=== PATIENT | female | born 1965 | race Two or more races ===

== ENCOUNTER 2018-08-01 17:51 | Emergency (ER) | payer OTHER, SELFPAY ==
[~2018-08-01] VITALS: Ht 152.4 cm; Wt 82.4 kg
--- NOTE | 2018-08-01 18:17 | NUR ---
PT PRESENTING TO ER FOR SOB STARTING TODAY, FEVER/CHILLS/FATIGUE STARTING THURSDAY AND LUMP ON UPPER LEFT SIDE CHEST X FEW MONTHS CAUSING PAIN. PT VERY EMOTIONAL UPON ARRIVAL TO ROOM. CONNECTED TO MONITORING, VSS. FAMILY AT BEDSIDE. CALL LIGHT WITHIN REACH. AWAITING MD ASSESSMENT AND ORDERS AT THIS TIME
--- NOTE | 2018-08-01 18:32 | NUR ---
MD TO BEDSIDE FOR ASSESSMENT. AWAITING ORDERS AT THIS TIME
--- NOTE | 2018-08-01 18:46 | NUR ---
ORDERS RECEIVED, LAB AT BEDSIDE FOR COLLECTION. PT TO BE MEDICATED
[2018-08-01] MEDS ORDERED: FAMOTIDINE 20 MG TABLET ONE (18:50)
[2018-08-01] MEDS ORDERED: IBUPROFEN 600 MG TABLET ONE (18:51)
[2018-08-01 18:58] LABS: BASOPHILS # (AUTO) 0.04 x10^3/uL (0-0.1); BASOPHILS % (AUTO) 0 % (0-1); EOSINOPHILS # (AUTO) 0.03 x10^3/uL (0-0.4); EOSINOPHILS % (AUTO) 0 % (1-7); LYMPHOCYTES # (AUTO) 1.89 x10^3/uL (1-3.4); LYMPHOCYTES % (AUTO) 15 % (22-44); MD NO; MEAN CORPUSCULAR HEMOGLOBIN 31.4 pg (27.0-34.8); MEAN CORPUSCULAR HGB CONC 34.7 g/dL (32.4-35.8); MEAN CORPUSCULAR VOLUME 90.4 fL (80-100); MEAN PLATELET VOLUME 9.2 fL (7.4-10.4); MONOCYTES # (AUTO) 0.51 x10^3/uL (0.2-0.8); MONOCYTES % (AUTO) 4 % (2-9); NEUTROPHILS # (AUTO) 9.92 x10^3/uL (1.8-6.8); NEUTROPHILS % (AUTO) 80 % (42-75); PLATELET COUNT 210 x10^3/uL (130-400); RED BLOOD COUNT 4.54 x10^6/uL (3.82-5.3)
[2018-08-01] MEDS ORDERED: IBUPROFEN 600 MG TABLET PO ONE (19:00)
[2018-08-01] MEDS ORDERED: FAMOTIDINE 20 MG TABLET PO ONE (19:00)
[2018-08-01 19:06] VITALS: BP 125/71
--- NOTE | 2018-08-01 19:09 | NUR ---
BACK FROM RAD. PT MEDICATED PER JUN. TECH AT BEDSIDE FOR EKG. FAMILY AT BEDSIDE. CALL LIGHT WITHIN REACH. VSS AT THIS TIME
[2018-08-01 19:11] LABS: ALANINE AMINOTRANSFERASE 36 U/L (12-78); ALBUMIN 3.3 g/dL (3.4-5.0); ANION GAP 7 mmol/L (5-15); CALCIUM 9.2 mg/dL (8.5-10.1); CHLORIDE 111 mmol/L (98-107); CREATININE 1.19 mg/dL (0.55-1.02)
[2018-08-01 19:16] LABS: ALKALINE PHOSPHATASE 113 U/L (45-117); BILIRUBIN,TOTAL 0.1 mg/dL (0.2-1.0); T4 (THYROXINE) 13.6 mcg/dL (4.8-13.9); TROPONIN I < 0.015 ng/mL (0.000-0.045)
--- NOTE | 2018-08-01 19:35 | NUR ---
MD TO BEDSIDE TO RECHECK PT AND UPDATE PT AND FAMILY ON POC. PT TO BE DCd
== END 2018-08-01 19:53 | disposition home or self-care (01) ==
LOC: ED 19:00
DX: M94.0 Chondrocostal junction syndrome [Tietze] (principal); R07.89 Other chest pain
CPT/HCPCS: 36415; 71046; 80053; 84436; 84443; 84484; 85025; 93005; 99284

== ENCOUNTER 2019-11-14 07:44 | Emergency (ER) | payer OTHER ==
[~2019-11-14] VITALS: Ht 154.9 cm; Wt 85.2 kg
[2019-11-14] MEDS ORDERED: DIAZEPAM 5 MG TABLET ONE (08:23)
[2019-11-14] MEDS ORDERED: KETOROLAC 30 MG/1 ML ONE (08:23)
[2019-11-14] MEDS ORDERED: KETOROLAC 30 MG/1 ML IM ONE (08:30)
[2019-11-14] MEDS ORDERED: DIAZEPAM 5 MG TABLET PO ONE (08:30)
--- NOTE | 2019-11-14 08:36 | NUR ---
PT IN XRAY
--- NOTE | 2019-11-14 10:12 | NUR ---
RECHECK OF VITALS SHOWS PTS HR [id number], PA NOTIFIED, LABS AND EKG ORDERED Addendum: 11/14/19 at 1013 by JACOBO PT STATES SHE "GETS DIZZY SOMETIMES". PT STATES PAIN RELIEF CURRENTLY AFTER MEDS.
[2019-11-14 10:46] LABS: BASOPHILS # (AUTO) 0.02 x10^3/uL (0-0.1); BASOPHILS % (AUTO) 0 % (0-1); EOSINOPHILS # (AUTO) 0.09 x10^3/uL (0-0.4); EOSINOPHILS % (AUTO) 1 % (1-7); LYMPHOCYTES % (AUTO) 26 % (22-44); MD NO; MEAN CORPUSCULAR HGB CONC 33.2 g/dL (32.4-35.8); MEAN CORPUSCULAR VOLUME 93.4 fL (80-100); MONOCYTES # (AUTO) 0.47 x10^3/uL (0.2-0.8); MONOCYTES % (AUTO) 5 % (2-9); NEUTROPHILS # (AUTO) 6.82 x10^3/uL (1.8-6.8); NEUTROPHILS % (AUTO) 68 % (42-75); PLATELET COUNT 196 x10^3/uL (130-400); RED CELL DISTRIBUTION WIDTH 12.1 % (9.6-15.2)
[2019-11-14 10:51] LABS: ALBUMIN 3.6 g/dL (3.4-5.0); ANION GAP 7 mmol/L (5-15); CALCIUM 9.5 mg/dL (8.5-10.1); CHLORIDE 112 mmol/L (98-107); CREATININE 0.89 mg/dL (0.55-1.02)
[2019-11-14 11:23] VITALS: BP 143/72
== END 2019-11-14 09:33 ==
LOC: ED 08:06
DX: M13.162 Monoarthritis, not elsewhere classified, left knee (principal); M54.42 Lumbago with sciatica, left side; R00.1 Bradycardia, unspecified
CPT/HCPCS: 36415; 72110; 73564; 80048; 82040; 85025; 93005; 96372; 99285; J1885

== ENCOUNTER 2020-08-02 19:33 | Observation (INO) | payer OTHER ==
[~2020-08-02] VITALS: Ht 152.4 cm; Wt 99.3 kg
--- NOTE | 2020-08-02 19:54 | NUR ---
CC OF LEFT HIP, KNEE, AND ANKLE PAIN. PTS DAUGHTER AT BEDSIDE, TRANSLATING PER REQUEST OF PT. PT HAS HAD LEFT HIP PAIN FOR 2 MONTHS, BUT WORSENED TODAY. PT DESCRIBES PAIN SHARP AND CRAMPING PAIN 10/10. PT RESTING IN GURNEY CRYING DUE TO PAIN.
[2020-08-02] MEDS ORDERED: KETAMINE 10 MG/ML, 20ML IV ONE (20:38)
[2020-08-02] MEDS ORDERED: KETAMINE 10 MG/ML, 20ML ONE (20:51)
[2020-08-02] MEDS ORDERED: KETOROLAC 30 MG/1 ML IVPush ONE (21:30)
[2020-08-02] MEDS ORDERED: KETOROLAC 30 MG/1 ML ONE (21:44)
[2020-08-02 22:13] VITALS: BP 150/82
[2020-08-02] MEDS ORDERED: LIDODERM 5% PATCH TD PRN (23:30)
[2020-08-02] MEDS ORDERED: ACETAMINOPHEN 325 MG TABLET PO PRN (23:30)
[2020-08-02] MEDS ORDERED: KETOROLAC 30 MG/1 ML IV PRN (23:30)
[2020-08-02] MEDS ORDERED: GABAPENTIN 300 MG CAPSULE PO PRN (23:30)
[2020-08-02] MEDS ORDERED: MELATONIN 5 MG TABLET PO PRN (23:30)
[2020-08-02] MEDS ORDERED: DOCUSATE 100 MG CAPSULE PO PRN (23:30)
[2020-08-03 00:31] VITALS: BP 125/80
[2020-08-03 07:02] VITALS: BP 129/77
[2020-08-03] MEDS ORDERED: ACETAMINOPHEN 500 MG TABLET PO PRN (09:00)
[2020-08-03] MEDS: GABAPENTIN 100 MG CAPSULE PO SCH ×3 (11:30→20:20)
[2020-08-03 14:30] VITALS: BP 124/85
[2020-08-03] MEDS ORDERED: GADOTERATE 10 MMOL/20ML SYR ONE (16:25)
[2020-08-03 18:54] VITALS: BP 123/71
[2020-08-04 01:29] VITALS: BP 109/61
[2020-08-04] MEDS: GABAPENTIN 100 MG CAPSULE PO SCH ×2 (05:34→11:06)
[2020-08-04 06:08] LABS: ALANINE AMINOTRANSFERASE 46 U/L (12-78); ALBUMIN 3.3 g/dL (3.4-5.0); ANION GAP 7 mmol/L (5-15); BASOPHILS % (AUTO) 0 % (0-1); CALCIUM 9.1 mg/dL (8.5-10.1); CHLORIDE 110 mmol/L (98-107); CREATININE 0.89 mg/dL (0.55-1.02); EOSINOPHILS % (AUTO) 3 % (1-7); LYMPHOCYTES % (AUTO) 30 % (22-44); MEAN CORPUSCULAR HEMOGLOBIN 31.8 pg (27.0-34.8); MEAN CORPUSCULAR HGB CONC 34.8 g/dL (32.4-35.8); MEAN PLATELET VOLUME 9.7 fL (7.4-10.4); MONOCYTES % (AUTO) 10 % (2-9); NEUTROPHILS % (AUTO) 57 % (42-75); PLATELET COUNT 199 x10^3/uL (130-400); RED BLOOD COUNT 4.58 x10^6/uL (3.82-5.3); RED CELL DISTRIBUTION WIDTH 12.4 % (9.6-15.2)
[2020-08-04 06:10] LABS: MD NO
[2020-08-04 06:34] VITALS: BP 113/65
[2020-08-04 06:35] LABS: ALKALINE PHOSPHATASE 115 U/L (45-117); BILIRUBIN,TOTAL 0.2 mg/dL (0.2-1.0)
[2020-08-04] MEDS ORDERED: GABA-826 PO (11:53)
[2020-08-04] MEDS ORDERED: DOCU-131 PO (11:53)
[2020-08-04] MEDS ORDERED: IBUP-1221 PO (11:53)
[2020-08-04] MEDS ORDERED: ACET-1600 PO (11:53)
[2020-08-04 13:01] VITALS: BP 115/68
== END 2020-08-04 16:21 | disposition home or self-care (01) ==
LOC: ED 21:28 → INTOOBSV 21:47 → EDIP 21:47 → 3N 22:11 → DCLOUNGE 08-04 16:06
PROVIDERS: ADMIT Family Medicine; ATTEND Internal Medicine
DX: M17.12 Unilateral primary osteoarthritis, left knee (principal); M47.816 Spondylosis without myelopathy or radiculopathy, lumbar region; E66.01 Morbid (severe) obesity due to excess calories; Z68.41 Body mass index [BMI] 40.0-44.9, adult; Z79.899 Other long term (current) drug therapy
CPT/HCPCS: 36415; 72158; 73700; 80053; 82306; 82607; 83735; 84100; 85025; 93971; 96374; 96375; 97162; 99285; A9575; G0378; J1885